=== PATIENT | male | born 1985 | race Two or more races ===

== ENCOUNTER 2017-10-14 19:55 | Emergency (ER) | payer MEDICAID ==
[~2017-10-14] VITALS: Ht 170.2 cm; Wt 74.8 kg
[2017-10-14 20:39] VITALS: BP 121/76
[2017-10-14] MEDS ORDERED: SODIUM CHLORIDE 0.9% 1,000 ML IVB ONE (20:42)
[2017-10-14 21:27] LABS: Acetaminophen < 2.0 ug/mL (10-30); Basophils # (auto) 0 uL; Basophils % (auto) 0.5 % (0.0-2.0); Eosinophils # (auto) 0.1 uL; Eosinophils % (auto) 1.3 % (0.0-7.0); Hematocrit 46.1 % (41.0-53.0); Hemoglobin 15.4 g/dL (13.5-17.5); Lymphocytes # (auto) 1.7 uL; Lymphocytes % (auto) 22.8 % (10.0-50.0); Mean Corpuscular Hemoglobin 31.3 pg (28.0-32.0); Mean Corpuscular Hgb Conc. 33.4 g/dL (32.0-36.0); Mean Corpuscular Volume 93.8 fL (80.0-100.0); Mean Platelet Volume 8.2 fL (6.9-10.8); Monocytes # (auto) 0.7 uL; Monocytes % (auto) 8.7 % (0.0-12.0); Neutrophils # (auto) 5.1 uL; Neutrophils % (auto) 66.7 % (37.0-80.0); Platelet Count (auto) 253 10^3/uL (140-450); Red Cell Distribution Width 13.4 % (11.8-14.3); Salicylate < 1.7 mg/dL (2.8-20.0); White Blood Cell 7.6 10^3/uL (4.4-10.8)
[2017-10-14 21:28] LABS: Albumin 3.6 g/dL (3.4-5.0); BUN/Creatinine Ratio 11.1; Calcium 7.9 mg/dL (8.5-10.1); Potassium 3.2 mmol/L (3.5-5.1)
[2017-10-14 21:31] LABS: Bilirubin, Total 0.2 mg/dL (0.2-1.0); Total Protein 7.3 g/dL (6.4-8.2)
[2017-10-14 21:47] LABS: Urine RBC None Seen /hpf (0 - 3)
[2017-10-14 22:17] LABS: Urine Bilirubin Negative (Negative); Urine Blood Negative /uL (Negative); Urine Glucose Normal (Normal); Urine Ketone Negative (Negative); Urine Mucus FEW (None Seen); Urine Nitrite Negative (Negative); Urine Urobilinogen Normal (Negative); Urine pH 5.5 (5.0-8.0)
[2017-10-14 22:27] LABS: Urine Color Straw (Yellow)
== END 2017-10-14 21:51 | disposition left against medical advice (07) ==
LOC: EDBD 19:55 → ER 19:55
DX: T40.1X1A Poisoning by heroin, accidental (unintentional), initial encounter (principal); Y92.89 Other specified places as the place of occurrence of the external cause
CPT/HCPCS: 36415; 71010; 80053; 80307; 80320; 80329; 81001; 85025; 93005; 96360; 99285; J7030

== ENCOUNTER 2017-11-05 13:59 | Emergency (ER) | payer MEDICAID ==
[~2017-11-05] VITALS: Ht 167.6 cm; Wt 72.6 kg
[2017-11-05 14:16] VITALS: BP 124/87
== END 2017-11-06 03:09 | disposition left against medical advice (07) ==
LOC: ER 13:59 → EDBD 13:59 → ER 11-06 03:09
DX: T42.4X1A Poisoning by benzodiazepines, accidental (unintentional), initial encounter (principal); Z53.21 Procedure and treatment not carried out due to patient leaving prior to being seen by health care provider; Y93.89 Activity, other specified; Y99.8 Other external cause status; Y92.89 Other specified places as the place of occurrence of the external cause